=== PATIENT | male | born 1960 | race Caucasian/White ===

== ENCOUNTER → 2020-06-09 | Outpatient (CLI) | payer OTHER ==
[~2020-06-09] MED LIST: CEPHALEXIN500 M1 PO
== END ==
LOC: US 15:22
DX: M79.604 Pain in right leg (principal); R60.0 Localized edema; I80.01 Phlebitis and thrombophlebitis of superficial vessels of right lower extremity
CPT/HCPCS: 93971

== ENCOUNTER 2020-06-10 19:34 | Emergency (ER) | payer OTHER ==
[2020-06-10 20:31] LABS: HEMOGLOBIN 17.6 gm/dl (14.0-17.5); RED BLOOD COUNT 5.45 M/UL (4.20-5.50); WHITE BLOOD COUNT 9.8 K/UL (4.5-11.0)
[2020-06-10 20:55] LABS: BUN/CREATININE RATIO 15 (0-10)
[2020-06-10] MEDS ORDERED: CEPHALEXIN500 M1 PO (21:12)
== END 2020-06-10 21:29 | disposition home or self-care (01) ==
LOC: ER1 19:34
PROVIDERS: Emergency Medicine
DX: I80.01 Phlebitis and thrombophlebitis of superficial vessels of right lower extremity (principal); E87.6 Hypokalemia; F17.200 Nicotine dependence, unspecified, uncomplicated
CPT/HCPCS: 80053; 85025; 85610; 85730; 99283; J1650

== ENCOUNTER → 2020-06-11 | Outpatient (CLI) | payer OTHER | LOC: US 09:55 | DX: M79.604 Pain in right leg (principal); I82.811 Embolism and thrombosis of superficial veins of right lower extremity | CPT/HCPCS: 93971 ==

== ENCOUNTER 2020-06-20 00:32 | Emergency (ER) | payer OTHER ==
[2020-06-20 02:28] LABS: HEMOGLOBIN 18.5 gm/dl (14.0-17.5); RED BLOOD COUNT 5.87 M/UL (4.20-5.50)
[2020-06-20 02:51] LABS: BUN/CREATININE RATIO 16 (0-10)
== END 2020-06-20 06:25 | disposition home or self-care (01) ==
LOC: ER1 00:32
PROVIDERS: Family Medicine
DX: R07.9 Chest pain, unspecified (principal); R06.02 Shortness of breath; Z79.01 Long term (current) use of anticoagulants; Z86.718 Personal history of other venous thrombosis and embolism
CPT/HCPCS: 71046; 80053; 82550; 82553; 83874; 84484; 85025; 85379; 93005; 96374; 96375; 99285; J1200; J2930; Q9967

== ENCOUNTER 2021-01-07 11:41 | Emergency (ER) | payer OTHER ==
[2021-01-07] MEDS ORDERED: IBUPROFEN600 MG PO (12:35)
[2021-01-07] MEDS ORDERED: HYDROCODON-ACE1 EAC4 PO (12:50)
== END 2021-01-07 13:49 | disposition home or self-care (01) ==
LOC: ER1 11:41
DX: M25.471 Effusion, right ankle (principal); E07.9 Disorder of thyroid, unspecified; Z79.01 Long term (current) use of anticoagulants; Z86.718 Personal history of other venous thrombosis and embolism; E78.5 Hyperlipidemia, unspecified; F17.200 Nicotine dependence, unspecified, uncomplicated; W11.XXXA Fall on and from ladder, initial encounter
CPT/HCPCS: 73590; 73610; 73630; 99283